=== PATIENT | female | born 1975 | race Hispanic/Latino ===

== ENCOUNTER 2022-06-10 06:49 | Day surgery (SDC) | payer OTHER ==
[~2022-06-10] VITALS: Ht 167.6 cm; Wt 81.6 kg
[~2022-06-10 06:49] MED LIST: FERS325 PO; LISI20TA24 PO; VITA1CAP85 PO; VITAMIN D3 PO
[2022-06-10] MEDS ORDERED: 0.9%NACL 1000ML 1,000 ML IV ONE (06:56)
[2022-06-10 07:24] VITALS: BP 120/74
== END 2022-06-10 09:53 | disposition home or self-care (01) ==
LOC: DAH 06:49 → ENDO 06:49
PROVIDERS: ATTEND Internal Medicine Gastroenterology
DX: R12 Heartburn (principal); Z20.822 Contact with and (suspected) exposure to COVID-19; R11.0 Nausea; K29.70 Gastritis, unspecified, without bleeding; K57.30 Diverticulosis of large intestine without perforation or abscess without bleeding; I10 Essential (primary) hypertension; E11.9 Type 2 diabetes mellitus without complications; Z98.890 Other specified postprocedural states; Z90.49 Acquired absence of other specified parts of digestive tract; Z72.89 Other problems related to lifestyle; Z80.0 Family history of malignant neoplasm of digestive organs; Z93.3 Colostomy status; Z79.899 Other long term (current) drug therapy
CPT/HCPCS: 87426; 43239; 82948; 81025; J7030 ×2; A4620; A4215 ×2; A4223; A4657; A4222; A4221; A4663; A4606